=== PATIENT | female | born 1985 | race Caucasian/White ===

== ENCOUNTER 2019-07-21 11:50 | Emergency (ER) | payer MEDICARE ==
[~2019-07-21] VITALS: Ht 167.6 cm; Wt 65.0 kg
[~2019-07-21 11:50] MED LIST: MOTRIN600 MG PO; PERCOCET 5/3251 TA1 PO; PRENATAL COMPLE1 TAB PO
[2019-07-21 12:04] VITALS: Ht 167.6 cm; Wt 65.0 kg
[2019-07-21 13:00] LABS: BASOPHILS 0.1 % (0-2); EOSINOPHILS 1.6 % (0-7); HEMATOCRIT 38.4 % (36.0-48.0); HEMOGLOBIN 12.9 g/dL (12-16); IMMATURE GRANULOCYTES 0.2 % (0-5); LYMPHOCYTES 23.6 % (15-50); MCH 31.6 pg (26.0-34.0); MCHC 33.6 g/dL (31.0-37.0); MCV 94.1 fL (80.0-100.0); MEAN PLATELET VOLUME 9.5 fL (7.4-10.4); MONOCYTES 5.6 % (2-11); NEUTROPHILS 68.9 % (40-80); RBC 4.08 10x6/uL (4.00-5.40); RDW 12.4 % (11.5-14.5); WBC 10.5 10x3/uL (4.8-10.8)
[2019-07-21 13:04] LABS: APPEARANCE CLEAR (CLEAR); COLOR STRAW (YELLOW); GLUCOSE NEGATIVE (NEGATIVE); KETONE SMALL mg/dL (NEGATIVE); NITRITE NEGATIVE (NEGATIVE); PLATELET COUNT 227 10x3/uL (130-400); PROTEIN NEGATIVE (NEGATIVE)
[2019-07-21 13:05] LABS: BILIRUBIN NEGATIVE (NEGATIVE); UROBILINOGEN NORMAL (NORMAL)
[2019-07-21 13:06] LABS: BACTERIA NONE SEEN /hpf (NEGATIVE); EPITHELIAL CELLS OCC /hpf (0-5); RED CELLS - URINE 0-5 /hpf (0-5); WHITE CELLS - URINE RARE /hpf (NEGATIVE)
[2019-07-21 13:16] LABS: HCG SERUM POSITIVE (NEGATIVE)
[2019-07-21 13:24] LABS: ALBUMIN 3.7 g/dL (3.4-5.0); ALKALINE PHOSPHATASE 37 U/L (46-116); ALT (SGPT) 17 U/L (10-68); BILIRUBIN - TOTAL 0.35 mg/dL (0.2-1.3); CALC OSMOLALITY 275 mosm/kg (275-300); CALCIUM 9.1 mg/dL (8.5-10.1); CARBON DIOXIDE 28.2 mmol/L (21.0-32.0); CHLORIDE - SERUM 103 mmol/L (98-107); CREATININE - SERUM 0.7 mg/dL (0.6-1.3); GLUCOSE 85 mg/dL (74-106); POTASSIUM - SERUM 4.4 mmol/L (3.5-5.1); PROTEIN - SERUM 7.7 g/dL (6.4-8.2); SODIUM 140 mmol/L (136-145); UREA NITROGEN 7 mg/dL (7-18); eGFR NON AFRICAN AMERICAN > 90 mL/min (90-120)
[2019-07-21 17:17] VITALS: BP 103/52
== END 2019-07-21 17:05 | disposition home or self-care (01) ==
LOC: D.ER 11:50
PROVIDERS: Family Medicine
DX: O20.0 Threatened abortion (principal)